=== PATIENT | male | born 1975 | race American Indian/Alaskan Native ===

== ENCOUNTER 2017-08-28 16:25 | Emergency (ER) | payer MEDICAID ==
[2017-08-28] MEDS ORDERED: HALDOL IM PRN (16:26)
[2017-08-28] MEDS ORDERED: ATIVAN IM PRN (16:26)
[2017-08-28] MEDS ORDERED: BENADRYL IM PRN (16:26)
--- NOTE | 2017-08-28 16:34 | Emergency Department Report ---
HPI - General Time Seen by Provider: 08/28/17 16:26 - HPI HPI: Room 15 The patient is a 42-year-old male brought in by police with chief complaint of psychosis/violent behavior. Police states the patient was found behaving belligerently and destroying property in the home. Police states the mother reports the patient has a history of bipolar disorder in addition to schizophrenia or schizoaffective disorder. The mother reported the patient has been off of his medications . Per police to patient was aggressive and destroying property in the home cursing and nausea control. Location: Mental state Duration: See above, unknown Quality: Combative Severity: severe Modifying factors: [see above] Context: [see above] Mode of transportation: [not driving] ED Past Medical Hx - Past Medical History Hx Psychiatric Treatment: Yes (bipolar disorder) - Family History Family history: no significant - Social History Smoking Status: Current Every Day Smoker Substance Use Type: Alcohol - Medications Home Medications: Home Medications Medication Instructions Recorded Confirmed Last Taken Type Miconazole/Dimethicone/Zinc Ox 56 gm TP BID #1 spray 01/27/13 Unknown Rx [Rash Relief Antifungal [place]] Sulfamethoxazole/Trimethoprim 1 each PO BID #14 tablet 01/27/13 Unknown Rx [Bactrim DS] traMADol [Ultram] 50 mg PO Q4HR PRN #20 tablet 01/27/13 Unknown Rx ED Review of Systems ROS: Stated complaint: MH EVAL Other details as noted in HPI Comment: Unobtainable due to pts medical conditions ED Medical Decision Making - Lab Data Result diagrams: 08/28/17 17:41 08/28/17 17:41 Laboratory Tests 08/28/17 08/28/17 08/28/17 17:41 17:41 17:41 WBC 11.0 RBC 3.20 L Hgb 10.9 L Hct 31.8 L MCV 99 H MCH 34 H MCHC 34 RDW 14.5 Plt Count 323 Lymph % (Auto) 16.3 [place] % (Auto) 7.2 Eos % (Auto) 0.5 Baso % (Auto) 0.3 Lymph # 1.8 [place] # 0.8 Eos # 0.1 Baso # 0.0 Seg Neutrophils % 75.7 H Seg Neutrophils # 8.3 H Sodium 144 Potassium 3.8 Chloride 106.8 Carbon Dioxide 22 Anion Gap 19 BUN 10 Creatinine 1.2 Estimated GFR > 60 BUN/Creatinine Ratio 8 Glucose 71 L Calcium 8.5 Salicylates < 0.3 L Acetaminophen Plasma/Serum Alcohol 08/28/17 08/28/17 17:41 17:41 WBC RBC Hgb Hct MCV MCH MCHC RDW Plt Count Lymph % (Auto) [place] % (Auto) Eos % (Auto) Baso % (Auto) Lymph # [place] # Eos # Baso # Seg Neutrophils % Seg Neutrophils # Sodium Potassium Chloride Carbon Dioxide Anion Gap BUN Creatinine Estimated GFR BUN/Creatinine Ratio Glucose Calcium Salicylates Acetaminophen < 5.0 L Plasma/Serum Alcohol 0.15 H - Differential Diagnosis schizophrenia, bipolar disorder, substance abuse Critical care attestation.: If time is entered above; I have spent that time in minutes in the direct care of this critically ill patient, excluding procedure time. ED Disposition Clinical Impression: Combative behavior, Bipolar disorder, Alcohol intoxication Disposition: [id number]/[facility] PS[facility] HOSP/PSY UNIT Is pt being admited?: No Does the pt Need Aspirin: No Condition: Serious Time of Disposition: 18:10 (awaiting acceptance)
[2017-08-28 18:03] LABS: Basophils % (Auto) 0.3 % (0.0-1.8); Eosinophils # (Auto) 0.1 K/mm3 (0.0-0.4); Eosinophils % (Auto) 0.5 % (0.0-4.3); Hematocrit 31.8 % (35.5-45.6); Hemoglobin 10.9 gm/dl (11.8-15.2); Lymphocytes # (Auto) 1.8 K/mm3 (1.2-5.4); Lymphocytes % (Auto) 16.3 % (13.4-35.0); Mean Corpuscular HGB Conc 34 % (32-34); Mean Corpuscular Hemoglobin 34 pg (28-32); Mean Corpuscular Volume 99 fl (84-94); Monocytes # (Auto) 0.8 K/mm3 (0.0-0.8); Monocytes % (Auto) 7.2 % (0.0-7.3); Platelet Count 323 K/mm3 (140-440); Red Cell Distribution Width 14.5 % (13.2-15.2)
[2017-08-28 18:07] LABS: BUN/Creatinine Ratio 8; Blood Urea Nitrogen 10 mg/dL (9-20); Calcium 8.5 mg/dL (8.4-10.2); Hemolysis Index 9
[2017-08-28 18:10] LABS: Bilirubin,Urine NEG (Negative); Blood,Urine NEG (Negative); Hyaline Casts,Urine 4 /LPF; Mucus,Urine 3+ /HPF
[2017-08-28 18:11] LABS: Color,Urine Dark Yellow (Yellow)
[2017-08-28 18:17] LABS: Amphetamine Screen,Urine PRESUMPTIVE NEGATIVE; Benzodiazepines Screen,Urine PRESUMPTIVE NEGATIVE; Methadone Screen,Urine PRESUMPTIVE NEGATIVE; Opiate Screen,Urine PRESUMPTIVE NEGATIVE
[2017-08-28 18:29] LABS: Cannabinoid Screen,Urine PRESUMPTIVE POSITIVE; Cocaine Screen,Urine PRESUMPTIVE POSITIVE
[2017-08-29 07:59] VITALS: BP 122/77
--- NOTE | 2017-08-29 14:46 | Consultation ---
History of Present Illness - Reason for Consult Consult date: 08/29/17 Reason for consult: Mental Health Evaluation Requesting physician: SAMI WATTS - Chief Complaint Chief complaint: "I don't know why I'm here" - History of Present Psychiatric Illness 42-year-old male brought in by police with chief complaint of psychosis/violent behavior. Today the patient is calm, but vague during the assessment. He was adamant about getting something to drink. He was asked about what happen prior to his arrival to the ER, he stated something about a neighbor next door. He would not elaborate more when asked. This patient isn't as good historian at this time. Medications and Allergies Allergies Allergy/AdvReac Type Severity Reaction Status Date / Time No Known Allergies Allergy Unverified 01/26/13 20:31 Home Medications Medication Instructions Recorded Confirmed Last Taken Type Miconazole/Dimethicone/Zinc Ox 56 gm TP BID #1 spray 01/27/13 08/29/17 Unknown Rx [Rash Relief Antifungal [place]] Sulfamethoxazole/Trimethoprim 1 each PO BID #14 tablet 01/27/13 08/29/17 Unknown Rx [Bactrim DS] traMADol [Ultram] 50 mg PO Q4HR PRN #20 tablet 01/27/13 08/29/17 Unknown Rx Active Meds: Active Medications Diphenhydramine HCl (Benadryl) 50 mg IM Q6H PRN PRN Reason: Agitation Last Admin: 08/28/17 17:06 Dose: 50 mg Haloperidol Lactate (Haldol) 10 mg IM Q8H PRN PRN Reason: Agitation Last Admin: 08/28/17 17:06 Dose: 10 mg Lorazepam (Ativan) 2 mg IM Q8H PRN PRN Reason: Agitation Last Admin: 08/28/17 17:05 Dose: 2 mg Past psychiatric history - Past Medical History Past Medical History: other (Unable to obtain) Past Surgical History: Other (Unable to obtain ) - past Psychiatric treatment and history psychiatric treatment history: Unable to obtain a psy hx and a fam psy hx. - Social History Social history: other (Unable to obtain) Mental Status Exam - Vital signs Last Vital Signs Temp 97.5 F L 08/29/17 07:57 Pulse 48 L 08/29/17 07:57 Resp 16 08/29/17 10:45 BP 122/77 08/29/17 07:57 Pulse Ox 100 08/29/17 07:57 - Exam Narrative exam: MSE: Appearance: calm Behavior: regular eye contact Speech: regular rate and tone Mood: "okay" Affect: flat Thought Process: unable to assess Thought Content: no gestures of SI/HI's Motor Activity: lying in bed Cognition: A/Ox3 Insight: variable Judgment: variable Results Result Diagrams: 08/28/17 17:41 08/28/17 17:41 Abnormal lab results 08/28/17 08/28/17 08/28/17 Range/Units 17:41 17:41 17:41 RBC 3.20 L (3.65-5.03) M/mm3 Hgb 10.9 L (11.8-15.2) gm/dl Hct 31.8 L (35.5-45.6) % MCV 99 H (84-94) fl MCH 34 H (28-32) pg Seg Neutrophils % 75.7 H (40.0-70.0) % Seg Neutrophils # 8.3 H (1.8-7.7) K/mm3 Glucose 71 L (75-100) mg/dL Salicylates < 0.3 L (2.8-20.0) mg/dL Acetaminophen (10.0-30.0) ug/mL Plasma/Serum Alcohol (0-0.07) % 08/28/17 08/28/17 Range/Units 17:41 17:41 RBC (3.65-5.03) M/mm3 Hgb (11.8-15.2) gm/dl Hct (35.5-45.6) % MCV (84-94) fl MCH (28-32) pg Seg Neutrophils % (40.0-70.0) % Seg Neutrophils # (1.8-7.7) K/mm3 Glucose (75-100) mg/dL Salicylates (2.8-20.0) mg/dL Acetaminophen < 5.0 L (10.0-30.0) ug/mL Plasma/Serum Alcohol 0.15 H (0-0.07) % All other labs normal. Assessment and Plan Assessment and plan: Impression: Alcohol Intoxication on arrival to ER. Today the patient is calm, but vague during the assessment. Recommendation/Plan: Continue 1013 and gather collateral information to help determine proper treatment and dispo.
== END 2017-08-29 21:04 ==
LOC: ED 16:25 → EEVIPCON 16:25 → ED 08-29 21:04
DX: F31.9 Bipolar disorder, unspecified (principal); F20.9 Schizophrenia, unspecified; F91.9 Conduct disorder, unspecified; F17.200 Nicotine dependence, unspecified, uncomplicated
CPT/HCPCS: 36415; 80048; 80307; 81001; 85025; 96372; 99283; G0480; J1200; J1630; J2060; 80320